=== PATIENT | female | born 1990 | race American Indian/Alaskan Native ===

== ENCOUNTER 2020-09-07 04:16 | Emergency (ER) | payer SELFPAY ==
[2020-09-07 04:27] VITALS: BP 123/61
[2020-09-07] MEDS ORDERED: methylPREDNISolone Sod Succinate 125 MG/2 ML INJ IM ONE (04:57)
[2020-09-07] MEDS ORDERED: FAMOTIDINE 20 MG TAB PO ONE (04:57)
[2020-09-07] MEDS ORDERED: diphenhydrAMINE 25 MG CAP PO ONE (04:57)
--- NOTE | 2020-09-07 05:02 | Emergency Department Report ---
ED Allergic Reaction HPI - General Chief complaint: Allergic Reaction Stated complaint: LIP SWOLLEN Source: patient Mode of arrival: Ambulatory Limitations: No Limitations - History of Present Illness Initial Comments: Patient is a 30-year-old -German female with no past medical history presents to the ED with complaint of acute onset persistent upper lip tingling sensation and swelling after eating seafood and other vegetables about 8 hours ago. Patient states that the symptoms started about 2 hours after eating food that consisted of seafood and vegetable cocktail. Patient states that she is still experiencing upper lip tingling sensation and itching and subsequently developed mild swelling. Patient states that she took a Benadryl and fell asleep but woke up to worsening upper lip swelling. Patient denies shortness of breath, wheezing, dizziness, syncope, swollen tongue, swollen throat, dysphagia, dysphonia, nausea and vomiting, abdominal pain or diarrhea, facial swelling, fever and chills. MD Complaint: allergic reaction, facial swelling (Swollen upper lip after eating seafood) -: Sudden, hour(s) (8) Exposure: food Symptoms: itching, facial swelling, lip swelling (upper lip). denies: rash, difficulty swallowing, difficulty breathing, orolingual swelling, hoarseness, syncopy, dizziness, nausea, vomiting, other, abdominal pain Treatment Prior to Arrival: benadryl (6 hours ago) Previous Allergy History: none - Related Data Previous Rx's Medication Instructions Recorded Last Taken Type Famotidine [Pepcid] 20 mg PO BID #60 tablet 09/07/20 Unknown Rx diphenhydrAMINE [Benadryl CAP] 50 mg PO Q8HR PRN #30 capsule 09/07/20 Unknown Rx predniSONE [Deltasone] 60 mg PO QDAY #15 tab 09/07/20 Unknown Rx Allergies Allergy/AdvReac Type Severity Reaction Status Date / Time No Known Allergies Allergy Unverified 09/07/20 05:08 ED Review of Systems ROS: Stated complaint: LIP SWOLLEN Other details as noted in HPI Constitutional: denies: chills, fever Eyes: denies: eye pain, eye discharge, vision change ENT: other (Mildly swollen upper lip). denies: ear pain, throat pain Respiratory: denies: cough, shortness of breath, wheezing Cardiovascular: denies: chest pain, palpitations Endocrine: no symptoms reported Gastrointestinal: denies: abdominal pain, nausea, diarrhea Genitourinary: denies: urgency, dysuria, discharge Musculoskeletal: denies: back pain, joint swelling, arthralgia Skin: denies: rash, lesions Neurological: denies: headache, weakness, paresthesias Psychiatric: denies: anxiety, depression Hematological/Lymphatic: denies: easy bleeding, easy bruising ED Past Medical Hx - Past Medical History Previous Medical History?: No - Surgical History Past Surgical History?: No - Social History Smoking Status: Never Smoker Substance Use Type: None - Medications Home Medications: Home Medications Medication Instructions Recorded Confirmed Last Taken Type Famotidine [Pepcid] 20 mg PO BID #60 tablet 09/07/20 Unknown Rx diphenhydrAMINE [Benadryl CAP] 50 mg PO Q8HR PRN #30 capsule 09/07/20 Unknown Rx predniSONE [Deltasone] 60 mg PO QDAY #15 tab 09/07/20 Unknown Rx ED Physical Exam - General Limitations: No Limitations General appearance: alert, in no apparent distress - Head Head exam: Present: atraumatic, normocephalic, normal inspection - Eye Eye exam: Present: normal appearance, PERRL, EOMI Pupils: Present: normal accommodation - ENT ENT exam: Present: normal orophraynx, mucous membranes moist, TM's normal bilaterally, normal external ear exam, other (mildly swollen upper lip) - Neck Neck exam: Present: normal inspection, full ROM - Respiratory Respiratory exam: Present: normal lung sounds bilaterally. Absent: respiratory distress, wheezes, rales, rhonchi, chest wall tenderness, accessory muscle use, decreased breath sounds - Cardiovascular Cardiovascular Exam: Present: regular rate, normal rhythm, normal heart sounds. Absent: systolic murmur, diastolic murmur, rubs, gallop - GI/Abdominal GI/Abdominal exam: Present: soft, normal bowel sounds. Absent: tenderness, guarding, rebound, hyperactive bowel sounds, hypoactive bowel sounds, organomegaly - Extremities Exam Extremities exam: Present: normal inspection, full ROM, normal capillary refill - Back Exam Back exam: Present: normal inspection, full ROM. Absent: tenderness, CVA tenderness (R), CVA tenderness (L), muscle spasm, paraspinal tenderness, vertebral tenderness - Neurological Exam Neurological exam: Present: alert, oriented X3, CN II-XII intact, normal gait, reflexes normal - Psychiatric Psychiatric exam: Present: normal affect, normal mood - Skin Skin exam: Present: warm, dry, intact, normal color. Absent: rash ED Course Vital Signs 09/07/20 04:22 Temperature 99.0 F Pulse Rate 89 Respiratory 18 Rate Blood Pressure 123/61 O2 Sat by Pulse 100 Oximetry ED Medical Decision Making - Medical Decision Making This is a 30-year-old -German female with no past medical history presents to the ED with complaint of acute onset persistent upper lip tingling sensation and swelling after eating seafood and other vegetables about 8 hours ago. Patient states that the symptoms started about 2 hours after eating food that consisted of seafood and vegetable cocktail. Patient states that she is still experiencing upper lip tingling sensation and itching and subsequently developed mild swelling. Patient states that she took a Benadryl and fell asleep but woke up to worsening upper lip swelling. In the ED, patient is alert and oriented x3 and is not in distress. Patient was treated for acute allergic reaction in the ED with Solu-Medrol, Pepcid and Benadryl. Patient was observed briefly in the ED and on reevaluation, the swelling improved significantly. Patient felt better, the airway is patent and not obstructed, patient's vital signs are stable. Patient was discharged home on prescription of steroids, Pepcid and Benadryl. Patient was advised to return to the ED immediately if symptoms get worse, otherwise follow-up with her primary care physician in 3 to 5 days for reevaluation. - Differential Diagnosis Acute urticaria; allergic reaction; angioedema; anaphylaxis Critical care attestation.: If time is entered above; I have spent that time in minutes in the direct care of this critically ill patient, excluding procedure time. ED Disposition Clinical Impression: Urticaria due to food allergy, Swelling of upper lip Acute allergic reaction Qualifiers: Encounter type: initial encounter Qualified Code(s): T78.40XA - Allergy, unspecified, initial encounter Disposition: - TO HOME OR SELFCARE Is pt being admited?: No Does the pt Need Aspirin: No Condition: Stable Instructions: Allergies, Adult, [id number], Rash, Adult, [id number] Additional Instructions: Take medication with food, drink plenty of fluids and follow-up with your primary care physician in 3 to 5 days for reevaluation. Return to the ED immediately if symptoms get worse especially if you develop shortness of breath, wheezing, swollen throat, swollen tongue, intractable nausea and vomiting with diarrhea, abdominal pain or worsening symptoms. Prescriptions: diphenhydrAMINE [Benadryl CAP] 50 mg PO Q8HR PRN #30 capsule PRN Reason: Allergy Symptoms predniSONE [Deltasone] 60 mg PO QDAY #15 tab Famotidine [Pepcid] 20 mg PO BID #60 tablet Referrals: [facility] [Provider Group] - 3-5 Days Time of Disposition: 05:00 Print Language: YEMENI
== END 2020-09-07 06:00 | disposition home or self-care (01) ==
LOC: ED 04:16
DX: T78.40XA Allergy, unspecified, initial encounter (principal); L50.0 Allergic urticaria; R22.9 Localized swelling, mass and lump, unspecified; Z79.899 Other long term (current) drug therapy; X58.XXXA Exposure to other specified factors, initial encounter
CPT/HCPCS: 96372; 99282; J2930